=== PATIENT | female | born 1995 | race African-American/Black ===

== ENCOUNTER 2023-10-23 19:03 | Emergency (ER) | payer MEDICAID ==
[~2023-10-23] VITALS: Ht 172.7 cm; Wt 63.7 kg
[2023-10-23 19:23] VITALS: TEMP 98.5
[2023-10-23] MEDS ORDERED: FLEXERIL 1010 MG/TAB PO (19:36)
[2023-10-23] MEDS ORDERED: NAPROSYN500 MG PO (19:37)
[2023-10-23] MEDS ORDERED: Ketorolac 30 MG/ML VIAL IM ONE (19:45)
[2023-10-23] MEDS ORDERED: Lidocaine 4% Topical Patch TP ONE (19:45)
[2023-10-23] MEDS ORDERED: Home Cyclobenzaprine 10 MG #2 TABS/PACK PO ONE (19:45)
[2023-10-23 19:51] VITALS: BP 138/87; PULSE 70
== END 2023-10-23 19:51 | disposition home or self-care (01) ==
LOC: COL.ER 19:03
DX: S39.012A Strain of muscle, fascia and tendon of lower back, initial encounter (principal); X50.0XXA Overexertion from strenuous movement or load, initial encounter; Y92.89 Other specified places as the place of occurrence of the external cause; Y99.0 Civilian activity done for income or pay
CPT/HCPCS: J1885